=== PATIENT | female | born 1990 | race American Indian/Alaskan Native ===

== ENCOUNTER 2016-07-03 18:39 | Emergency (ER) | payer SELFPAY ==
[2016-07-03 19:02] VITALS: BP 100/62
[2016-07-03] MEDS ORDERED: NORCO 5/325 PO ONE (22:18)
[2016-07-03] MEDS ORDERED: LIDOCAINE VISCOUS 2% PO ONE (22:18)
[2016-07-03] MEDS ORDERED: DELTASONE PO ONE (22:21)
--- NOTE | 2016-07-03 22:40 | Emergency Department Report ---
ED ENT HPI - General Chief complaint: Sore Throat Stated complaint: SORE THROAT/BODY HURT/FEVER Source: patient Mode of arrival: Ambulatory Limitations: No Limitations - History of Present Illness Initial comments: 26-year-old female comes in for complaint of sore throat since last night complains of bodyaches fever since this morning she reports she get Tylenol early this morning for fever no medications since then. She complains of fever or chills bodyaches and vomited 1 MD complaint: sore throat, difficulty swallowing - Related Data Previous Rx's Medication Instructions Recorded Last Taken Type Amoxicillin [Amoxicillin TAB] 875 mg PO BID #20 tablet 07/03/16 Unknown Rx Ibuprofen [Motrin 600 MG tab] 600 mg PO Q8H PRN #30 tablet 07/03/16 Unknown Rx Allergies Allergy/AdvReac Type Severity Reaction Status Date / Time No Known Allergies Allergy Unverified 07/03/16 18:59 ED Dental HPI - General Chief complaint: Sore Throat Stated complaint: SORE THROAT/BODY HURT/FEVER Source: patient Mode of arrival: Ambulatory Limitations: No Limitations - Related Data Previous Rx's Medication Instructions Recorded Last Taken Type Amoxicillin [Amoxicillin TAB] 875 mg PO BID #20 tablet 07/03/16 Unknown Rx Ibuprofen [Motrin 600 MG tab] 600 mg PO Q8H PRN #30 tablet 07/03/16 Unknown Rx Allergies Allergy/AdvReac Type Severity Reaction Status Date / Time No Known Allergies Allergy Unverified 07/03/16 18:59 ED Review of Systems ROS: Stated complaint: SORE THROAT/BODY HURT/FEVER Other details as noted in HPI Constitutional: chills, fever ENT: throat pain Gastrointestinal: vomiting (times one) ED Past Medical Hx - Past Medical History Previous Medical History?: No - Surgical History Past Surgical History?: No - Social History Smoking Status: Never Smoker Substance Use Type: None - Medications Home Medications: Home Medications Medication Instructions Recorded Confirmed Last Taken Type Amoxicillin [Amoxicillin TAB] 875 mg PO BID #20 tablet 07/03/16 Unknown Rx Ibuprofen [Motrin 600 MG tab] 600 mg PO Q8H PRN #30 tablet 07/03/16 Unknown Rx ED Physical Exam - General Limitations: No Limitations General appearance: alert, in no apparent distress - Head Head exam: Present: atraumatic, normocephalic - Eye Eye exam: Present: normal appearance, PERRL, EOMI - ENT ENT exam: Present: mucous membranes moist, TM's normal bilaterally - Expanded ENT Exam Expanded Throat exam: Positive: tonsillar erythema, tonsillomegaly. Negative: tonsillar exudate - Neck Neck exam: Present: tenderness - Respiratory Respiratory exam: Present: normal lung sounds bilaterally. Absent: respiratory distress, wheezes - Cardiovascular Cardiovascular Exam: Present: regular rate, normal rhythm, normal heart sounds ED Course Vital Signs 07/03/16 19:00 Temperature 98.5 F Pulse Rate 87 Respiratory 16 Rate Blood Pressure 100/62 O2 Sat by Pulse 100 Oximetry ED Medical Decision Making - Medical Decision Making He has been evaluated by this provider. With ordered a rapid strep and influenza, [place], lidocaine viserous prednisone. Discussed with patient that her strep test came positive for treat her with amoxicillin 875 mg 1 tablet by mouth twice a day for 10 days as well as ibuprofen 600 mg 1 tablet by mouth 3 times a day when necessary for pain. Patient verbalized understanding. Critical care attestation.: If time is entered above; I have spent that time in minutes in the direct care of this critically ill patient, excluding procedure time. ED Disposition Clinical Impression: Strep sore throat Disposition: DISCHARGED TO HOME OR SELFCARE Is pt being admited?: No Does the pt Need Aspirin: No Condition: Stable Instructions: Strep Throat (ED) Additional Instructions: Complete all antibiotics as prescribed use ibuprofen when necessary for pain and discomfort. Recommended to follow up to primary care provider in 3-5 days. Prescriptions: Amoxicillin [Amoxicillin TAB] 875 mg PO BID #20 tablet Ibuprofen [Motrin 600 MG tab] 600 mg PO Q8H PRN #30 tablet PRN Reason: Pain Referrals: PRIMARY CAREMD [Primary Care Provider] - 3-5 Days COURTNEY WILSON MD [Staff Physician] - 3-5 Days Forms: Work/School Release Form(ED)
== END 2016-07-03 23:01 | disposition home or self-care (01) ==
LOC: ED 18:39
DX: J02.0 Streptococcal pharyngitis (principal)
CPT/HCPCS: 87400; 87430; 99282; J7512